=== PATIENT | male | born 1965 ===

== ENCOUNTER 2017-05-15 11:41 | Emergency (ER) | payer SELFPAY ==
[2017-05-15 13:41] VITALS: RESP 20
[2017-05-15] MEDS ORDERED: TDAP Vaccine 0.5 mL Syr IM ONE (13:46)
--- NOTE | 2017-05-15 14:32 | CT ---
PROCEDURE: CT HEAD WITHOUT CONTRAST. HISTORY: Head injury COMPARISON: None available. TECHNIQUE: Axial computed tomography images were obtained through the head/brain without intravenous contrast. Radiation dose: Total exam DLP = 962.74 mGy-cm. This CT exam was performed using one or more of the following dose reduction techniques: Automated exposure control, adjustment of the mA and/or kV according to patient size, and/or use of iterative reconstruction technique. FINDINGS: HEMORRHAGE: No intracranial hemorrhage. BRAIN: Huff-white matter differentiation is preserved. There is no mass, mass effect or abnormal extra-axial fluid collection. There is no territorial infarction. There are coarse atherosclerotic calcifications in the cavernous carotid arteries. VENTRICLES: The ventricles are normal in size, shape and configuration. CALVARIUM: There is no calvarial fracture. There is a small left frontal scalp hematoma. PARANASAL SINUSES: Predominantly clear. MASTOID AIR CELLS: Predominantly clear. OTHER FINDINGS: None. IMPRESSION: No acute intracranial abnormality. Small left frontal scalp hematoma.
[2017-05-15 14:44] LABS: HEMATOCRIT 45.8 % (35.0-51.0); MEAN CELL VOLUME 86.9 fl (80.0-94.0); MEAN CORPUSCULAR HEMOGLOBIN 29.3 pg (27.0-31.0); MEAN CORPUSCULAR HGB CONC 33.7 g/dL (33.0-37.0); RED CELL DISTRIBUTION WIDTH 13.5 % (11.5-14.5); WHITE BLOOD COUNT 10.6 K/uL (4.8-10.8)
[2017-05-15 14:50] LABS: BLOOD UREA NITROGEN 13 mg/dl (9-20); CALCIUM 9.6 mg/dL (8.4-10.2); CARBON DIOXIDE 21 mmol/L (22-30); CHLORIDE 107 mmol/L (98-107); GFR AFRICAN-AMERICAN > 60; GLUCOSE,RANDOM 113 mg/dL (75-110); POTASSIUM 3.8 MMOL/L (3.6-5.0); SODIUM 141 mmol/l (132-148)
--- NOTE | 2017-05-15 15:08 | RAD ---
Indication: Scapular pain, fall Left scapula radiographs, two views Comparison: None available Findings: No acute displaced fracture or dislocation identified. Soft tissues appear unremarkable. No evidence of radiopaque foreign body. Partially imaged atherosclerotic calcifications of an ectatic aorta. Limited visualized upper lobe lung field appears grossly clear. Impression: No acute displaced fracture dislocation identified. If symptoms persist or if there is continued clinical concern, x-ray follow-up in 7-10 days should be considered.
--- NOTE | 2017-05-15 15:13 | ED PDOC ---
HPI: Trauma/Fall - HPI Time Seen by Provider: 05/15/17 12:43 Chief Complaint (Nursing): Back Pain Chief Complaint (Provider): Shoulder pain, laceration, fall History Per: Patient History/Exam Limitations: no limitations Onset/Duration Of Symptoms: Days (1) Injury Occurred (Timing): Days Ago: (1) Location Of Injury: Left: Shoulder, Anterior: Head Severity: Moderate Associated Symptoms: denies: Dizziness, Dazed, LOC, Seizure, Memory Impairment Additional History Per: Patient Additional Complaint(s): 51 y/o male who complains of a laceration to the forehead, left shoulder pain, and abrasions after rolling/falling down 6 stairs yesterday. He complains that he did strike his head as he was falling and sustained a laceration that he repaired with a home kit. He notes pain and swelling of the bilateral periorbital tissue that began this morning when he woke. Patient also complains of left shoulder pain since the fall. Pain is moderate to severe. He also complains of abrasions to the arms and knees without pain. Patient denies any LOC, nausea, vomiting, speech changes, or other complaint. He notes a history of uncontrolled HTN. PMD: none at this time - Fall Fall:Prior To Injury: denies: Passed Out, Almost Passed Out Past Medical History Reviewed: Historical Data, Nursing Documentation, Vital Signs Vital Signs: Last Vital Signs Temp 97.6 F 05/15/17 16:16 Pulse 97 H 05/15/17 16:16 Resp 20 05/15/17 16:16 BP 190/118 H 05/15/17 16:16 Pulse Ox 98 05/15/17 16:16 - Medical History PMH: HTN, Hypercholesterolemia - Surgical History Surgical History: No Surg Hx - Family History Family History: States: Unknown Family Hx - Social History Current smoker - smoking cessation education provided: No Alcohol: None Drugs: Denies - Home Medications Home Medications: Ambulatory Orders Medication Instructions Recorded Losartan [Cozaar] 25 mg PO DAILY #30 tab 05/15/17 - Allergies Allergies/Adverse Reactions: Allergies Allergy/AdvReac Type Severity Reaction Status Date / Time No Known Allergies Allergy Verified 05/15/17 12:08 Review of Systems ROS Statement: Except As Marked, All Systems Reviewed And Found Negative Musculoskeletal: Positive for: Shoulder Pain Skin: Positive for: Bruising, Other (laceration, abrasion, swelling) Neurological: Positive for: Headache. Negative for: Weakness, Numbness, Incoordination, Change in Speech, Confusion, Seizures, Altered Mental Status, Dizziness Physical Exam - Reviewed Nursing Documentation Reviewed: Yes Vital Signs Reviewed: Yes - Physical Exam Appears: Positive for: Well, Non-toxic, No Acute Distress Head Exam: Positive for: NORMAL INSPECTION, NORMOCEPHALIC. Negative for: ATRAUMATIC (3 cm laceration noted to the frontal skull and closed with butterflies. No bleeding or oozing. Mild periorbital swelling and mild ecchymosis) Skin: Positive for: Warm, Dry. Negative for: Normal Color (abrasions to the arms and knees) Eye Exam: Positive for: Normal appearance, EOMI, PERRL, Periorbital swelling ( bilateral with mild ecchymosis) ENT: Positive for: Normal ENT Inspection Neck: Positive for: Normal, Painless ROM Cardiovascular/Chest: Positive for: Regular Rate, Rhythm Respiratory: Positive for: CNT, Normal Breath Sounds Gastrointestinal/Abdominal: Positive for: Normal Exam, Bowel Sounds, Soft Back: Positive for: Normal Inspection Extremity: Positive for: Normal ROM, Tenderness (left shoulder and scapular, no deformity ). Negative for: Swelling Neurologic/Psych: Positive for: Alert, Oriented - Laboratory Results Result Diagrams: 05/15/17 14:36 05/15/17 14:36 - ECG O2 Sat by Pulse Oximetry: 98 (RA) - Progress Re-evaluation Time: 15:56 Condition: Re-examined, Improved Medical Decision Making Medical Decision Making: Initial Impression: Mechanical fall with multiple blunt injuries. Rule out intracranial process and skull fracture. Also rule out shoulder and scapular injury on the left. Laceration is closed without oozing or bleeding and does not require further intervention at this time. 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 Pt as history of chronic hypertension not on medications. There are no emergent conditions at this time. Pt has normal labs. Pt has appointment. Scribe Attestation: Documented by Caryn Figueredo acting as a scribe for Korina Ching MD. Scribe Attestation: All medical record entries made by the Scribe were at my direction and personally dictated by me. I have reviewed the chart and agree that the record accurately reflects my personal performance of the history, physical exam, medical decision making, and the department course for this patient. I have also personally directed, reviewed, and agree with the discharge instructions and disposition. Disposition - Clinical Impression Clinical Impression: Shoulder injury, Head injury, Scalp laceration, Hypertension - Patient ED Disposition Is Patient to be Admitted: No Doctor Will See Patient In The: Office Counseled Patient/Family Regarding: Studies Performed, Diagnosis, Need For Followup - Disposition Referrals: [facility] [Outside] Disposition: Routine/Home Disposition Time: 15:58 Condition: GOOD Additional Instructions: Follow up with your PCP in 1 week. Date May 22 at 12.45 pm Call to confirm your appointment. Prescriptions: Losartan [Cozaar] 25 mg PO DAILY #30 tab Instructions: Laceration (ED), Head Injury (ED), Hypertension (ED) Forms: [facility] ED School/Work Excuse
[2017-05-15 15:58] VITALS: O2SAT 98
[2017-05-15 16:18] VITALS: BP 190/118; PULSE 97; TEMP 97.6
== END 2017-05-15 16:17 | disposition home or self-care (01) ==
LOC: H.ER 11:41
DX: S09.90XA Unspecified injury of head, initial encounter (principal); S01.01XA Laceration without foreign body of scalp, initial encounter; M25.512 Pain in left shoulder; W10.9XXA Fall (on) (from) unspecified stairs and steps, initial encounter; Y92.89 Other specified places as the place of occurrence of the external cause; I10 Essential (primary) hypertension